=== PATIENT | male | born 1965 | race Caucasian/White ===

== ENCOUNTER 2018-09-18 15:41 | Inpatient (IN) | payer OTHER ==
[2018-09-18 16:55] VITALS: BMI 26.2
--- NOTE | 2018-09-18 18:53 | HP ---
COWS - Scale Resting Pulse: 0= [place] 80 or Below Sweatin= Chills/Flushing Restless Observation: 1= Difficult to Sit Still Pupil Size: 1= Pupils >than Normal Bone or Joint Aches: 1= Mild Discomfort Runny Nose/ Eye Tearin= Runny Nose/Eyes GI Upset > 30mins: 1= Stomach Cramp Tremor Observation: 1= Tremor [place], Not Seen Yawning Observation: 1= 1-2x During Session Anxiety or Irritability: 1=Feels Anxious/Irritable Goose Flesh Skin: 3=Piloerection COWS Score: 13 CIWA Score - Admission Criteria [facility] Guidelines: Admission for Medically Managed Detox: Requires at least one of the followin. CIWA greater than 12 2. Seizures within the past 24 hours 3. Delirium tremens within the past 24 hours 4. Hallucinations within the past 24 hours 5. Acute intervention needed for co occurring medical disorder 6. Acute intervention needed for co occurring psychiatric disorder 7. Severe withdrawal that cannot be handled at a lower level of care (continued vomiting, continued diarrhea, abnormal vital signs) requiring intravenous medication and/or fluids 8. Admission ROS [facility] Chief Complaint: WITHDRAWAL SYMPTOMS Allergies/Adverse Reactions: Allergies Allergy/AdvReac Type Severity Reaction Status Date / Time No Known Allergies Allergy Verified 09/18/18 18:18 History of Present Illness: 52 Y.O. MAN WITH AN EXTENSIVE HISTORY OF HEROIN, CRACK-COCAINE AND MARIJUANA DEPENDENCE IS HERE SEEKING DETOX SERVICES. LONGEST PERIOD OF ILLICIT DRUG USE ABSTINENCE HAS BEEN 5 YEARS WHILE INCARCERATED. Exam Limitations: No Limitations - Ebola screening Have you traveled outside of the country in the last 21 days: No Have you had contact with anyone from an Ebola affected area: No Have you been sick,other than usual withdrawal symptoms: No - Review of Systems Constitutional: Diaphoresis, Night Sweats EENT: reports: Tearing, Nose Congestion Respiratory: reports: Cough, Wheezing Cardiac: reports: No Symptoms Reported GI: reports: Diarrhea, Nausea, Vomiting : reports: No Symptoms Reported Musculoskeletal: reports: No Symptoms Reported Integumentary: reports: No Symptoms Reported Neuro: reports: No Symptoms reported Endocrine: reports: No Symptoms Reported Hematology: reports: No Symptoms Reported Psychiatric: reports: Judgement Intact, Mood/Affect Appropiate, Orientated x3 Other Systems: Reviewed and Negative Patient History - Patient Medical History Hx Anemia: No Hx Asthma: No Hx Chronic Obstructive Pulmonary Disease (COPD): No Hx Cancer: No Hx Cardiac Disorders: No Hx Congestive Heart Failure: No Hx Hypertension: No Hx Hypercholesterolemia: No Hx Pacemaker: No HX Cerebrovascular Accident: No Hx Seizures: No Hx Dementia: No Hx Diabetes: No Hx Gastrointestinal Disorders: No Hx Liver Disease: No Hx Genitourinary Disorders: No Hx Sexually Transmitted Disorders: No Hx Renal Disease (ESRD): No Hx Thyroid Disease: No Hx Human Immunodeficiency Virus (HIV): No Hx Hepatitis C: No Hx Depression: No Hx Suicide Attempt: No Hx Bipolar Disorder: No Hx Schizophrenia: No - Patient Surgical History Past Surgical History: No Hx Neurologic Surgery: No Hx Cataract Extraction: No Hx Cardiac Surgery: No Hx Lung Surgery: No Hx Breast Surgery: No Hx Breast Biopsy: No Hx Abdominal Surgery: No Hx Appendectomy: No Hx Cholecystectomy: No Hx Genitourinary Surgery: No Hx Section: No Hx Orthopedic Surgery: No Anesthesia Reaction: No - PPD History Previous Implant?: Yes Documented Results: Negative w/proof Date: 12/22/14 Results: 0mm PPD to be Administered?: Yes - Reproductive History Patient is a Female of Child Bearing Age (11 -55 yrs old): No - Smoking Cessation Smoking history: Current every day smoker Aproximately how many cigarettes per day: 4 Hx Chewing Tobacco Use: No Initiated information on smoking cessation: Yes 'Breaking Loose' booklet given: 09/18/18 - Substance & Tx. History Hx Alcohol Use: No Hx Substance Use: Yes Substance Use Type: Cocaine, Heroin, Marijuana Hx Substance Use Treatment: Yes (DETOX:12/2014; REHAB: 07/2013) - Substances Abused Heroin Route: Inhalation Frequency: Daily Amount used: 10 bags Age of first use: 19 Date of Last Use: 09/18/18 Crack Route: Smoking Frequency: 1-3 times last 30 days Amount used: $100 worth Age of first use: 21 Date of Last Use: 09/18/18 Marijuana/Hashish Route: Smoking Frequency: 1-3 times last 30 days Amount used: 2 bags Age of first use: 19 Date of Last Use: 09/18/18 Family Disease History - Family Disease History Family Disease History: Heart Disease: Mother (DECREASED ), CA: Father (PROSTATE ; ), Respiratory: Father Admission Physical Exam BHS - Vital Signs Vital Signs: Vital Signs - 24 hr 09/18/18 16:54 Temperature 97.5 F L Pulse Rate 75 Respiratory 18 Rate Blood Pressure 115/75 - Physical General Appearance: Yes: Irritable, Anxious HEENTM: Yes: Hearing grossly Normal, Normocephalic, Normal Voice Respiratory: Yes: Chest Non-Tender, Lungs Clear Neck: Yes: No masses,lesions,Nodules, Trachea in good position Breast: Yes: Breast Exam Deferred Cardiology: Yes: Regular Rhythm, Regular Rate Abdominal: Yes: Normal Bowel Sounds, Non Tender Genitourinary: Yes: Other (NO COMPLAINTS REPORTED) Back: Yes: Normal Inspection Musculoskeletal: Yes: full range of Motion, Gait Steady, Pelvis Stable Extremities: Yes: Normal Capillary Refill, Normal Inspection, Normal Range of Motion, Non-Tender Neurological: Yes: Alert, Normal Mood/Affect, Normal Response Integumentary: Yes: Normal Color, Dry, Warm Lymphatic: Yes: Within Normal Limits - Diagnostic (1) Nicotine dependence Current Visit: Yes Status: Chronic (2) Opioid dependence with withdrawal Current Visit: Yes Status: Chronic (3) Marijuana dependence Current Visit: Yes Status: Chronic (4) Cocaine dependence Current Visit: Yes Status: Acute Cleared for Admission [facility] - Detox or Rehab [facility] Level of Care: Medically Managed Detox Regimen/Protocol: Methadone [facility] Breath Alcohol Content Breath Alcohol Content: 0 Urine Drug Screen - Results Drug Screen Negative: No Urine Drug Screen Results: THC-Marijuana, MARIA C-Cocaine, OPI-Opiates, MTD- Methadone
[2018-09-18] MEDS ORDERED: hydrOXYzine PAMOATE 50 MG CAPSULE (FP) PO PRN (19:06)
[2018-09-18] MEDS ORDERED: IBUPROFEN 400 MG TABLET (FP) PO PRN (19:06)
[2018-09-18] MEDS ORDERED: P-EPHED 60MG/TRIPROLIDI 2.5MG TABLET PO PRN (19:06)
[2018-09-18] MEDS ORDERED: ACETAMINOPHEN 325 MG TABLET (FP) PO PRN (19:06)
[2018-09-18] MEDS ORDERED: MAGNESIUM HYDROX 2400MG/30ML ORAL SUSPENSION 30 ML CUP PO PRN (19:06)
[2018-09-18] MEDS ORDERED: guaiFENesin/D-METHORPHAN HB 10 ML UNIT-DOSE CUPS PO PRN (19:06)
[2018-09-18] MEDS ORDERED: MAGNESIUM CITRATE 300 ML BOTTLE PO PRN (19:06)
[2018-09-18] MEDS ORDERED: MENTHOL/PHENOL 1 EACH UD MM PRN (19:06)
[2018-09-18] MEDS ORDERED: NICOTINE POLACRILEX 2 MG GUM BUC PRN (19:06)
[2018-09-18] MEDS ORDERED: METHADONE HCL 10 MG TABLET (FOR DETOX USE ONLY) PO ONE ×2 (19:06→23:00)
[2018-09-18] MEDS ORDERED: LOPERAMIDE HCL 2 MG CAPSULE PO PRN (19:06)
[2018-09-18] MEDS ORDERED: MAG HYDROX/AL HYDROX/SIMETH 30 ML UNIT-DOSE CUP PO PRN (19:06)
[2018-09-18] MEDS: diazePAM 5 MG TABLET PO PRN (19:56)
[2018-09-18] MEDS: THIAMINE HCL 100 MG TABLET (FP) PO SCH (22:02)
[2018-09-18] MEDS: MELATONIN 5 MG TABLETS PO PRN (22:02)
[2018-09-18 23:19] LABS: URINE APPEARANCE SLCLOUDY; URINE BILIRUBIN NEGATIVE (<2.0 mg/dL); URINE COLOR DKYELLOW; URINE GLUCOSE (UA) 2+ (NEGATIVE); URINE KETONE 1+ (NEGATIVE); URINE LEUK ESTERASE NEGATIVE (NEGATIVE); URINE NITRITE NEGATIVE (NEGATIVE); URINE PROTEIN NEGATIVE (NEGATIVE)
[2018-09-19] MEDS ORDERED: METHADONE HCL 10 MG TABLET (FOR DETOX USE ONLY) PO ONE (10:00)
[2018-09-19] MEDS: diazePAM 5 MG TABLET PO PRN (10:12)
[2018-09-19] MEDS: PRENATAL VITAMINS W/ FOLIC ACID TABLET (FP) PO SCH (10:12)
[2018-09-19] MEDS: NICOTINE 14 MG/24 HOURS TOPICAL PATCH TD SCH (10:13)
[2018-09-19 10:52] LABS: HEMATOCRIT 41.7 % (35.4-49); HEMOGLOBIN 13.8 GM/dL (11.7-16.9); MCH 30.6 pg (25.7-33.7); MCHC 33.1 g/dl (32.0-35.9); MEAN CELL VOLUME 92.5 fl (80-96); MEAN PLT VOLUME 10.1 fl (7.5-11.1); PLATELET COUNT 144 K/MM3 (134-434); RBC 4.51 M/mm3 (4.00-5.60); RDW 12.9 % (11.9-15.9); WHITE BLOOD COUNT 6.1 K/mm3 (4.0-10.0)
[2018-09-19 11:19] LABS: ALBUMIN 3.4 g/dl (3.4-5.0); ALK PHOS 52 U/L (45-117); ANION GAP 8 MMOL/L (8-16); BILIRUBIN,TOTAL 0.5 mg/dL (0.2-1); BLOOD UREA NITROGEN 16 mg/dL (7-18); CALCIUM 8.2 mg/dL (8.5-10.1); CHLORIDE 107 mmol/L (98-107); CO2 26 mmol/L (21-32); CREATININE 0.8 mg/dL (0.55-1.3); GLUCOSE,RANDOM 93 mg/dL (74-106); POTASSIUM 3.9 mmol/L (3.5-5.1); SGOT/AST 14 U/L (15-37); SGPT/ALT 18 U/L (13-61); SODIUM 141 mmol/L (136-145); TOT PROT 6.1 g/dl (6.4-8.2)
--- NOTE | 2018-09-19 11:57 | PN ---
BHS COWS - Scale Resting Pulse: 0= [place] 80 or Below Sweatin=Flushed/Facial Moisture Restless Observation: 3= Extraneous Movement Pupil Size: 0= Normal to Room Light Bone or Joint Aches: 2= Severe Diffuse Aches Runny Nose/ Eye Tearin= Runny Nose/Eyes GI Upset > 30mins: 3= Vomiting/Diarrhea Tremor Observation of Outstretched Hands: 2= Slight Tremor Visible Yawning Observation: 0= None Anxiety or Irritability: 2=Irritable/Anxious Goose Flesh Skin: 0=Smooth Skin COWS Score: 16 BHS Progress Note (SOAP) Subjective: Tremor, chills, sweating, interrupted sleep Objective: 09/19/18 11:54 Last Vital Signs Temp Pulse Resp BP Pulse Ox 98.1 F 69 20 103/65 09/19/18 09:53 09/19/18 09:53 09/19/18 09:53 09/19/18 09:53 Laboratory Tests 09/18/18 09/19/18 09/19/18 16:27 07:30 07:30 WBC 6.1 RBC 4.51 Hgb 13.8 Hct 41.7 MCV 92.5 MCH 30.6 MCHC 33.1 RDW 12.9 Plt Count 144 MPV 10.1 Sodium Potassium Chloride Carbon Dioxide Anion Gap BUN Creatinine Creat Clearance w eGFR Random Glucose Calcium Total Bilirubin AST ALT Alkaline Phosphatase Total Protein Albumin Urine Color Dkyellow Urine Appearance Slcloudy Urine pH 6.0 Ur Specific [place] 1.033 Urine Protein Negative Urine Glucose (UA) 2+ H Urine Ketones 1+ H Urine Blood Negative Urine Nitrite Negative Urine Bilirubin Negative Urine Urobilinogen 2.0 Ur Leukocyte Esterase Negative RPR Titer HIV 1&2 Antibody Screen Negative HIV P24 Antigen Negative 09/19/18 09/19/18 07:30 07:30 WBC RBC Hgb Hct MCV MCH MCHC RDW Plt Count MPV Sodium 141 Potassium 3.9 Chloride 107 Carbon Dioxide 26 Anion Gap 8 BUN 16 Creatinine 0.8 Creat Clearance w eGFR > 60 Random Glucose 93 Calcium 8.2 L Total Bilirubin 0.5 AST 14 L ALT 18 Alkaline Phosphatase 52 Total Protein 6.1 L Albumin 3.4 Urine Color Urine Appearance Urine pH Ur Specific [place] Urine Protein Urine Glucose (UA) Urine Ketones Urine Blood Urine Nitrite Urine Bilirubin Urine Urobilinogen Ur Leukocyte Esterase RPR Titer Nonreactive HIV 1&2 Antibody Screen HIV P24 Antigen Labs reviewed: abnormal UA Assessment: 09/19/18 11:56 Withdrawal symptoms UA abnormal Plan: Continue detox Abnormal UA: encouraged PO water intake, repeat UA
[2018-09-19] MEDS: THIAMINE HCL 100 MG TABLET (FP) PO SCH (22:27)
[2018-09-19] MEDS: MELATONIN 5 MG TABLETS PO PRN (22:27)
[2018-09-20] MEDS ORDERED: METHADONE HCL 5 MG TABLET (FOR DETOX USE ONLY) PO ONE (10:00)
[2018-09-20] MEDS: PRENATAL VITAMINS W/ FOLIC ACID TABLET (FP) PO SCH (10:17)
[2018-09-20] MEDS: NICOTINE 14 MG/24 HOURS TOPICAL PATCH TD SCH (10:18)
--- NOTE | 2018-09-20 11:48 | PN ---
BHS COWS - Scale Resting Pulse: 0= [place] 80 or Below Sweatin= Chills/Flushing Restless Observation: 3= Extraneous Movement Pupil Size: 0= Normal to Room Light Bone or Joint Aches: 2= Severe Diffuse Aches Runny Nose/ Eye Tearin= Runny Nose/Eyes GI Upset > 30mins: 1= Stomach Cramp Tremor Observation of Outstretched Hands: 2= Slight Tremor Visible Yawning Observation: 0= None Anxiety or Irritability: 2=Irritable/Anxious Goose Flesh Skin: 0=Smooth Skin COWS Score: 13 BHS Progress Note (SOAP) Subjective: Sweating, diarrhea, chills, interrupted sleep, agitation, anxious Objective: 09/20/18 11:46 Last Vital Signs Temp Pulse Resp BP Pulse Ox 98.5 F 63 18 111/67 09/20/18 09:33 09/20/18 09:33 09/20/18 09:33 09/20/18 09:33 Laboratory Tests 09/18/18 09/19/18 09/19/18 16:27 07:30 07:30 WBC 6.1 RBC 4.51 Hgb 13.8 Hct 41.7 MCV 92.5 MCH 30.6 MCHC 33.1 RDW 12.9 Plt Count 144 MPV 10.1 Sodium Potassium Chloride Carbon Dioxide Anion Gap BUN Creatinine Creat Clearance w eGFR Random Glucose Calcium Total Bilirubin AST ALT Alkaline Phosphatase Total Protein Albumin Urine Color Dkyellow Urine Appearance Slcloudy Urine pH 6.0 Ur Specific [place] 1.033 Urine Protein Negative Urine Glucose (UA) 2+ H Urine Ketones 1+ H Urine Blood Negative Urine Nitrite Negative Urine Bilirubin Negative Urine Urobilinogen 2.0 Ur Leukocyte Esterase Negative RPR Titer HIV 1&2 Antibody Screen Negative HIV P24 Antigen Negative 09/19/18 09/19/18 07:30 07:30 WBC RBC Hgb Hct MCV MCH MCHC RDW Plt Count MPV Sodium 141 Potassium 3.9 Chloride 107 Carbon Dioxide 26 Anion Gap 8 BUN 16 Creatinine 0.8 Creat Clearance w eGFR > 60 Random Glucose 93 Calcium 8.2 L Total Bilirubin 0.5 AST 14 L ALT 18 Alkaline Phosphatase 52 Total Protein 6.1 L Albumin 3.4 Urine Color Urine Appearance Urine pH Ur Specific [place] Urine Protein Urine Glucose (UA) Urine Ketones Urine Blood Urine Nitrite Urine Bilirubin Urine Urobilinogen Ur Leukocyte Esterase RPR Titer Nonreactive HIV 1&2 Antibody Screen HIV P24 Antigen Labs reviewed: abnormal UA Assessment: 09/20/18 11:47 Withdrawal symptoms Plan: Continue detox Encouraged PO water intake Follow up on repeated UA (result pending)
[2018-09-20 16:47] LABS: URINE APPEARANCE CLEAR; URINE BILIRUBIN NEGATIVE (<2.0 mg/dL); URINE COLOR LTYELLOW; URINE GLUCOSE (UA) NEGATIVE (NEGATIVE); URINE KETONE NEGATIVE (NEGATIVE); URINE LEUK ESTERASE NEGATIVE (NEGATIVE); URINE NITRITE NEGATIVE (NEGATIVE); URINE PROTEIN NEGATIVE (NEGATIVE); URINE UROBILINOGEN NEGATIVE mg/dL (0.2-1.0)
[2018-09-20] MEDS: MELATONIN 5 MG TABLETS PO PRN (22:39)
[2018-09-20] MEDS: THIAMINE HCL 100 MG TABLET (FP) PO SCH (22:40)
[2018-09-20] MEDS: diazePAM 5 MG TABLET PO PRN (22:40)
[2018-09-21] MEDS ORDERED: METHADONE HCL 5 MG TABLET (FOR DETOX USE ONLY) PO ONE (10:00)
[2018-09-21] MEDS: PRENATAL VITAMINS W/ FOLIC ACID TABLET (FP) PO SCH (10:16)
[2018-09-21] MEDS: NICOTINE 14 MG/24 HOURS TOPICAL PATCH TD SCH (10:16)
--- NOTE | 2018-09-21 14:57 | PN ---
BHS Progress Note (SOAP) Subjective: Agitated, restless, anxious, sweating, interrupted sleep, runny nose Objective: 09/21/18 14:56 Last Vital Signs Temp Pulse Resp BP Pulse Ox 97.1 F L 67 20 114/74 09/21/18 14:19 09/21/18 14:19 09/21/18 14:19 09/21/18 14:19 Laboratory Tests 09/18/18 09/19/18 09/19/18 16:27 07:30 07:30 WBC 6.1 RBC 4.51 Hgb 13.8 Hct 41.7 MCV 92.5 MCH 30.6 MCHC 33.1 RDW 12.9 Plt Count 144 MPV 10.1 Sodium Potassium Chloride Carbon Dioxide Anion Gap BUN Creatinine Creat Clearance w eGFR Random Glucose Calcium Total Bilirubin AST ALT Alkaline Phosphatase Total Protein Albumin Urine Color Dkyellow Urine Appearance Slcloudy Urine pH 6.0 Ur Specific [place] 1.033 Urine Protein Negative Urine Glucose (UA) 2+ H Urine Ketones 1+ H Urine Blood Negative Urine Nitrite Negative Urine Bilirubin Negative Urine Urobilinogen 2.0 Ur Leukocyte Esterase Negative RPR Titer HIV 1&2 Antibody Screen Negative HIV P24 Antigen Negative 09/19/18 09/19/18 09/20/18 07:30 07:30 11:00 WBC RBC Hgb Hct MCV MCH MCHC RDW Plt Count MPV Sodium 141 Potassium 3.9 Chloride 107 Carbon Dioxide 26 Anion Gap 8 BUN 16 Creatinine 0.8 Creat Clearance w eGFR > 60 Random Glucose 93 Calcium 8.2 L Total Bilirubin 0.5 AST 14 L ALT 18 Alkaline Phosphatase 52 Total Protein 6.1 L Albumin 3.4 Urine Color Ltyellow Urine Appearance Clear Urine pH 7.0 Ur Specific [place] 1.013 Urine Protein Negative Urine Glucose (UA) Negative Urine Ketones Negative Urine Blood Negative Urine Nitrite Negative Urine Bilirubin Negative Urine Urobilinogen Negative Ur Leukocyte Esterase Negative RPR Titer Nonreactive HIV 1&2 Antibody Screen HIV P24 Antigen Labs reviewed Assessment: 09/21/18 14:57 Withdrawal symptoms Plan: Continue detox Encouraged PO water intake
[2018-09-21] MEDS: diazePAM 5 MG TABLET PO PRN (17:39)
[2018-09-21] MEDS: THIAMINE HCL 100 MG TABLET (FP) PO SCH (22:28)
[2018-09-22] MEDS ORDERED: METHADONE HCL 10 MG TABLET (FOR DETOX USE ONLY) PO ONE (10:00)
[2018-09-22] MEDS: NICOTINE 14 MG/24 HOURS TOPICAL PATCH TD SCH (10:05)
[2018-09-22] MEDS: PRENATAL VITAMINS W/ FOLIC ACID TABLET (FP) PO SCH (10:05)
--- NOTE | 2018-09-22 13:43 | PN ---
BHS Progress Note (SOAP) Subjective: PT REPORTS, FEELING LESS DISCOMFORT. ALERT O X 3. Objective: 09/22/18 13:42 Vital Signs 09/22/18 09/22/18 06:35 10:18 Temperature 97.2 F L 97.3 F L Pulse Rate 68 68 Respiratory 18 18 Rate Blood Pressure 92/58 L 115/85 Laboratory Tests 09/18/18 09/19/18 09/19/18 16:27 07:30 07:30 WBC 6.1 RBC 4.51 Hgb 13.8 Hct 41.7 MCV 92.5 MCH 30.6 MCHC 33.1 RDW 12.9 Plt Count 144 MPV 10.1 Sodium Potassium Chloride Carbon Dioxide Anion Gap BUN Creatinine Creat Clearance w eGFR Random Glucose Calcium Total Bilirubin AST ALT Alkaline Phosphatase Total Protein Albumin Urine Color Dkyellow Urine Appearance Slcloudy Urine pH 6.0 Ur Specific [place] 1.033 Urine Protein Negative Urine Glucose (UA) 2+ H Urine Ketones 1+ H Urine Blood Negative Urine Nitrite Negative Urine Bilirubin Negative Urine Urobilinogen 2.0 Ur Leukocyte Esterase Negative RPR Titer HIV 1&2 Antibody Screen Negative HIV P24 Antigen Negative 09/19/18 09/19/18 09/20/18 07:30 07:30 11:00 WBC RBC Hgb Hct MCV MCH MCHC RDW Plt Count MPV Sodium 141 Potassium 3.9 Chloride 107 Carbon Dioxide 26 Anion Gap 8 BUN 16 Creatinine 0.8 Creat Clearance w eGFR > 60 Random Glucose 93 Calcium 8.2 L Total Bilirubin 0.5 AST 14 L ALT 18 Alkaline Phosphatase 52 Total Protein 6.1 L Albumin 3.4 Urine Color Ltyellow Urine Appearance Clear Urine pH 7.0 Ur Specific [place] 1.013 Urine Protein Negative Urine Glucose (UA) Negative Urine Ketones Negative Urine Blood Negative Urine Nitrite Negative Urine Bilirubin Negative Urine Urobilinogen Negative Ur Leukocyte Esterase Negative RPR Titer Nonreactive HIV 1&2 Antibody Screen HIV P24 Antigen Assessment: 09/22/18 13:43 WITHDRAWAL SX Plan: CONTINUE DETOX
[2018-09-22 22:21] VITALS: TEMP 97
[2018-09-22] MEDS: THIAMINE HCL 100 MG TABLET (FP) PO SCH (22:21)
[2018-09-23] MEDS ORDERED: METHADONE HCL 5 MG TABLET (FOR DETOX USE ONLY) PO ONE (06:00)
[2018-09-23 06:27] VITALS: BP 113/68; PULSE 62
--- NOTE | 2018-09-23 11:32 | DS ---
[facility] Detox Discharge Summary Admission Date: 09/18/18 Discharge Date: 09/23/18 - History Present History: Cannabis Dependence, Cocaine Dependence, Opioid Dependence Additional Comments: Patient completed detox successfully. Patient is A, A, Ox3, in nad, ambulatory. He is stable for discharge today. Patient instructed to follow up with his PCP within 1-2 weeks. Pertinent Past History: Cocaine dependence Cannabis dependence Opioid dependence Nicotine dependence - Physical Exam Results Vital Signs: Vital Signs Temperature 97.0 F L 09/23/18 06:26 Pulse Rate 62 09/23/18 06:26 Respiratory Rate 18 09/23/18 06:26 Blood Pressure 113/68 09/23/18 06:26 O2 Sat by Pulse Oximetry (%) Pertinent Admission Physical Exam Findings: Withdrawal symptoms Laboratory Tests 09/18/18 09/19/18 09/19/18 16:27 07:30 07:30 WBC 6.1 RBC 4.51 Hgb 13.8 Hct 41.7 MCV 92.5 MCH 30.6 MCHC 33.1 RDW 12.9 Plt Count 144 MPV 10.1 Sodium Potassium Chloride Carbon Dioxide Anion Gap BUN Creatinine Creat Clearance w eGFR Random Glucose Calcium Total Bilirubin AST ALT Alkaline Phosphatase Total Protein Albumin Urine Color Dkyellow Urine Appearance Slcloudy Urine pH 6.0 Ur Specific [place] 1.033 Urine Protein Negative Urine Glucose (UA) 2+ H Urine Ketones 1+ H Urine Blood Negative Urine Nitrite Negative Urine Bilirubin Negative Urine Urobilinogen 2.0 Ur Leukocyte Esterase Negative RPR Titer HIV 1&2 Antibody Screen Negative HIV P24 Antigen Negative 09/19/18 09/19/18 09/20/18 07:30 07:30 11:00 WBC RBC Hgb Hct MCV MCH MCHC RDW Plt Count MPV Sodium 141 Potassium 3.9 Chloride 107 Carbon Dioxide 26 Anion Gap 8 BUN 16 Creatinine 0.8 Creat Clearance w eGFR > 60 Random Glucose 93 Calcium 8.2 L Total Bilirubin 0.5 AST 14 L ALT 18 Alkaline Phosphatase 52 Total Protein 6.1 L Albumin 3.4 Urine Color Ltyellow Urine Appearance Clear Urine pH 7.0 Ur Specific [place] 1.013 Urine Protein Negative Urine Glucose (UA) Negative Urine Ketones Negative Urine Blood Negative Urine Nitrite Negative Urine Bilirubin Negative Urine Urobilinogen Negative Ur Leukocyte Esterase Negative RPR Titer Nonreactive HIV 1&2 Antibody Screen HIV P24 Antigen Labs reviewed - Treatment Hospital Course: Detox Protocol Followed, Detoxed Safely, Responded well, Discharged Condition Good - Medication Discharge Medications: Ambulatory Orders NK [No Known Home Medication] 09/18/18 - Diagnosis (1) Cocaine dependence Status: Chronic (2) Marijuana dependence Status: Chronic (3) Nicotine dependence Status: Chronic Qualifiers: Nicotine product type: cigarettes Substance use status: in withdrawal Qualified Code(s): F17.213 - Nicotine dependence, cigarettes, with withdrawal (4) Opioid dependence with withdrawal Status: Acute - AMA Did Patient Leave Against Medical Advice: No (F/U with PCP within 1-2 weeks)
== END 2018-09-23 08:42 | disposition home or self-care (01) | DRG 773 ==
LOC: YASAS 15:41 → Y3N 18:49
PROC: HZ2ZZZZ Detoxification Services for Substance Abuse Treatment (ICD-10-PCS; principal; 2018-09-18)
DX: F11.23 Opioid dependence with withdrawal (principal); F14.20 Cocaine dependence, uncomplicated; F12.20 Cannabis dependence, uncomplicated; F17.213 Nicotine dependence, cigarettes, with withdrawal
CPT/HCPCS: 36415; 80053; 81003; 85027; 86593; 87389

== ENCOUNTER 2019-05-13 17:36 | Inpatient (IN) | payer OTHER ==
[2019-05-13 19:38] VITALS: BMI 24.5
--- NOTE | 2019-05-13 21:16 | HP ---
"COWS - Scale Resting Pulse: 0= OK 80 or Below Sweatin=Flushed/Facial Moisture Restless Observation: 3= Extraneous Movement Pupil Size: 2= Moderately Dilated (Pupils = 4 mm) Bone or Joint Aches: 0= None Runny Nose/ Eye Tearin= Nasal Congestion GI Upset > 30mins: 2= Nausea/Diarrhea Tremor Observation: 2= Slight Tremor Visible Yawning Observation: 0= None Anxiety or Irritability: 1=Feels Anxious/Irritable Goose Flesh Skin: 0=Smooth Skin COWS Score: 13 CIWA Score - Admission Criteria [facility]ASAS Guidelines: Admission for Medically Managed Detox: Requires at least one of the followin. CIWA greater than 12 2. Seizures within the past 24 hours 3. Delirium tremens within the past 24 hours 4. Hallucinations within the past 24 hours 5. Acute intervention needed for co occurring medical disorder 6. Acute intervention needed for co occurring psychiatric disorder 7. Severe withdrawal that cannot be handled at a lower level of care (continued vomiting, continued diarrhea, abnormal vital signs) requiring intravenous medication and/or fluids 8. Admission [facility] Chief Complaint: Heroin withdrawal Allergies/Adverse Reactions: Allergies Allergy/AdvReac Type Severity Reaction Status Date / Time No Known Allergies Allergy Verified 05/13/19 19:30 History of Present Illness: 53 yo presents with opioid withdrawal and requesting detox. Heroin/opiate use began at age 20. Stopped [facility] program 1 week ago and has been using approx 15 bags./daily nasally. States was receiving 80 mg methadone daily and last medicated 1 week ago. Cocaine/Crack use began at age [age]. Nicotine use began at age 12. Denies BZO use. Denies hx overdose, seizures, blackouts. PMHx: Denies significant PMH MHHx: Denies depression. Denies thoughts of harming self or others. Patient Name: Kadeem Lord Date: 1965 Address: [address] [place] [address] Sex: Male Rx Written Rx Dispensed Drug Quantity Days Supply Prescriber Name 12/20/2018 12/21/2018 buprenorphine-naloxone 8-2 mg sl film 14 7 Rashawn Adan 11/23/2018 11/23/2018 suboxone 8 mg-2 mg sl film 60 30 Rashawn Adan 11/12/2018 11/13/2018 suboxone 8 mg-2 mg sl film 14 7 Rashawn Adan 11/01/2018 11/02/2018 suboxone 8 mg-2 mg sl film 14 7 Rashawn Adan 07/13/2018 07/18/2018 suboxone 8 mg-2 mg sl film 60 30 Rashawn Adan 07/04/2018 07/06/2018 suboxone 8 mg-2 mg sl film 14 7 Rashawn Adan 07/04/2018 07/04/2018 suboxone 4 mg-1 mg sl film 6 3 Rashawn Adan Search Terms: Kadeem Lord, 1965 Search Date: 05/13/2019 09:15:53 PM States Searched: [place], [place], [place], [place], [place], [place], [place], [place] The Drug Utilization Report below displays the controlled substance prescriptions, if any, that were dispensed in the indicated state(s). The information displayed on this report is compiled from requests submitted to other states' PMPs, and accurately reflects the information as returned by them. Blank garsia indicate data not provided by other state. This report was requested by: Ashwini Ibrahim | Reference #: [id number] Exam Limitations: No Limitations - Ebola screening Have you traveled outside of the country in the last 21 days: No (N) Have you had contact with anyone from an Ebola affected area: No Have you been sick,other than usual withdrawal symptoms: No (Denies recent exposure to measles. ) Do you have a fever: No - Review of Systems Constitutional: Chills, Diaphoresis EENT: reports: No Symptoms Reported Respiratory: reports: No Symptoms reported Cardiac: reports: No Symptoms Reported GI: reports: Diarrhea (Watery, yeloow/brown), Nausea : reports: No Symptoms Reported Musculoskeletal: reports: No Symptoms Reported Integumentary: reports: No Symptoms Reported Neuro: reports: Tremors (Mild shakes) Endocrine: reports: No Symptoms Reported Hematology: reports: No Symptoms Reported Psychiatric: reports: Judgement Intact, Orientated x3 (Missed date by 1 day), Anxious Patient History - Patient Medical History Hx Anemia: No Hx Asthma: No Hx Chronic Obstructive Pulmonary Disease (COPD): No Hx Cancer: No Hx Cardiac Disorders: No Hx Congestive Heart Failure: No Hx Hypertension: No Hx Hypercholesterolemia: No Hx Pacemaker: No HX Cerebrovascular Accident: No Hx Seizures: No Hx Dementia: No Hx Diabetes: No Hx Gastrointestinal Disorders: No Hx Liver Disease: No Hx Genitourinary Disorders: No Hx Sexually Transmitted Disorders: No Hx Renal Disease (ESRD): No Hx Thyroid Disease: No Hx Human Immunodeficiency Virus (HIV): No Hx Hepatitis C: No Hx Depression: No Hx Suicide Attempt: No Hx Bipolar Disorder: No Hx Schizophrenia: No - Patient Surgical History Past Surgical History: No Hx Neurologic Surgery: No Hx Cataract Extraction: No Hx Cardiac Surgery: No Hx Lung Surgery: No Hx Breast Surgery: No Hx Breast Biopsy: No Hx Abdominal Surgery: No Hx Appendectomy: No Hx Cholecystectomy: No Hx Genitourinary Surgery: No Hx Section: No Hx Orthopedic Surgery: No Anesthesia Reaction: No - PPD History Previous Implant?: Yes Documented Results: Negative w/proof Implanted On Prior [facility] Admission?: Yes Date: 09/20/18 Results: 0mm PPD to be Administered?: No - Smoking Cessation Smoking history: Current every day smoker Have you smoked in the past 12 months: Yes Aproximately how many cigarettes per day: 2 Hx Chewing Tobacco Use: No Initiated information on smoking cessation: Yes 'Breaking Loose' booklet given: 05/13/19 - Substance & Tx. History Hx Alcohol Use: No Hx Substance Use: No Substance Use Type: Cocaine, Heroin Hx Substance Use Treatment: Yes (detox, rehab, Just left [facility] 1 week ago) - Substances abused Heroin Substance route: Inhalation Frequency: Daily Amount used: 15 bags/day Age of first use: 20 Date of last use: 05/13/19 Crack Substance route: Smoking Frequency: 1-3 times last 30 days Amount used: $350 Age of first use: 21 Date of last use: 05/11/19 Family Disease History - Family Disease History Family Disease History: Heart Disease: Mother (DECREASED ), CA: Father (PROSTATE ; ), Respiratory: Father Admission Physical Exam BHS - Vital Signs Vital Signs: Vital Signs - 24 hr 05/13/19 19:31 Temperature 98.2 F Pulse Rate 72 Respiratory 18 Rate Blood Pressure 116/75 - Physical General Appearance: Yes: Mild Distress, Tremorous, Sweating (Increased facial moisture), Anxious HEENTM: Yes: EOMI, Hearing grossly Normal, Normocephalic, Normal Voice, OLGA LIDIA ( Pupils = 4 mm), Pharynx Normal, Nasal Congestion Respiratory: Yes: Lungs Clear, Normal Breath Sounds, No Respiratory Distress Neck: Yes: No masses,lesions,Nodules, Supple Breast: Yes: Breast Exam Deferred Cardiology: Yes: Regular Rhythm, Regular Rate (HR: 68), S1, S2 Abdominal: Yes: Non Tender, Flat, Soft, Increased Bowel Sounds Genitourinary: Yes: Within Normal Limits Back: Yes: Normal Inspection Musculoskeletal: Yes: full range of Motion, Gait Steady Extremities: Yes: Normal Capillary Refill, Normal Inspection, Normal Range of Motion, Tremors Neurological: 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, Alert, Motor Strength 5/5, Normal Response Integumentary: Yes: Normal Color, Warm, Diaphoresis (Increased facial moisture) Lymphatic: Yes: Within Normal Limits - Diagnostic (1) Opioid dependence with withdrawal Current Visit: Yes Status: Acute (2) Cocaine dependence Current Visit: Yes Status: Chronic (3) Nicotine dependence Current Visit: Yes Status: Chronic Qualifiers: Nicotine product type: cigarettes Substance use status: in withdrawal Qualified Code(s): F17.213 - Nicotine dependence, cigarettes, with withdrawal Cleared for Admission [facility] - Detox or Rehab [facility] Level of Care: Medically Managed Detox Regimen/Protocol: Methadone Claeared for Rehab Admission: No Breathalyzer - Breathalyzer Breathalyzer: 0 Urine Drug Screen - Test Device Lot number: [id number] Expiration date: 09/21/20 - Control Is test valid?: Yes - Results Drug screen NEGATIVE: No Urine drug screen results: MARIA C-Cocaine, MET-Methamphetamine, FEN-Fentanyl, MOP- Opiates, OXY-Oxycodone, BZO-Benzodiazepines Inpatient Rehab Admission - Rehab Decision to Admit Inpatient rehab admission?: No"
[2019-05-13] MEDS ORDERED: cloNIDine HCL 0.1 MG TABLET PO PRN (22:07)
[2019-05-13] MEDS ORDERED: MAGNESIUM HYDROX 2400MG/30ML ORAL SUSPENSION 30 ML CUP PO PRN (22:07)
[2019-05-13] MEDS ORDERED: MELATONIN 5 MG TABLETS PO PRN (22:07)
[2019-05-13] MEDS ORDERED: METHOCARBAMOL 500 MG TABLET PO PRN (22:07)
[2019-05-13] MEDS ORDERED: IBUPROFEN 400 MG TABLET (FP) PO PRN (22:07)
[2019-05-13] MEDS ORDERED: METHADONE HCL 10 MG TABLET (FOR DETOX USE ONLY) PO ONE (22:07)
[2019-05-13] MEDS ORDERED: NICOTINE POLACRILEX 2 MG GUM BUC PRN (22:07)
[2019-05-13] MEDS ORDERED: BISMUTH SUBSALICYLATE 524 MG/30 ML UD PO PRN (22:07)
[2019-05-13] MEDS ORDERED: MAG HYDROX/AL HYDROX/SIMETH 30 ML UNIT-DOSE CUP PO PRN (22:07)
[2019-05-13] MEDS ORDERED: MENTHOL/PHENOL 1 EACH UD MM PRN (22:07)
[2019-05-13] MEDS ORDERED: MAGNESIUM CITRATE 300 ML BOTTLE PO PRN (22:07)
[2019-05-13] MEDS ORDERED: ACETAMINOPHEN 325 MG TABLET (FP) PO PRN ×2 (22:07)
[2019-05-14] MEDS ORDERED: METHADONE HCL 5 MG TABLET (FOR DETOX USE ONLY) ONE (09:23)
[2019-05-14] MEDS ORDERED: METHADONE HCL 10 MG TABLET (FOR DETOX USE ONLY) ONE (09:23)
[2019-05-14] MEDS ORDERED: METHADONE (DETOX) 20 MG, METHADONE (DETOX) 5 MG PO ONE (10:00)
--- NOTE | 2019-05-14 10:25 | PN ---
BHS COWS - Scale Resting Pulse: 0= RI 80 or Below Sweatin= Chills/Flushing Restless Observation: 0= Sits Still Pupil Size: 1= Pupils >than Normal Bone or Joint Aches: 1= Mild Discomfort Runny Nose/ Eye Tearin= Nasal Congestion GI Upset > 30mins: 1= Stomach Cramp Tremor Observation of Outstretched Hands: 2= Slight Tremor Visible Yawning Observation: 1= 1-2x During Session Anxiety or Irritability: 2=Irritable/Anxious Goose Flesh Skin: 0=Smooth Skin COWS Score: 10 BHS Progress Note (SOAP) Subjective: patient requests his breakfast to be warm up encourage the patient follow up unit schedule toward opiate recovery patient reported that he stop using opiate two days prior to detox admission that "I can do this" "I did this before" patient stated that he received methadone upon arrival to the detox unit and feeling ok that withdrawal can be self managed explained to the patient that skip one dose of detox regimen is acceptable Objective: 05/14/19 11:39 Vital Signs Temperature 96.8 F L 05/14/19 09:27 Pulse Rate 61 05/14/19 09:27 Respiratory Rate 16 05/14/19 09:27 Blood Pressure 100/65 05/14/19 09:27 O2 Sat by Pulse Oximetry (%) 05/14/19 11:39 lab pending Assessment: 05/14/19 11:39 opiate withdrawal sx Plan: continue opiate detox
[2019-05-14] MEDS: PRENATAL VITAMINS W/ FOLIC ACID TABLET (FP) PO SCH (11:39)
[2019-05-14] MEDS ORDERED: ONDANSETRON *ODT* 4 MG TABLET SL ONE (11:40)
[2019-05-14 12:10] LABS: ALBUMIN 3.3 g/dl (3.4-5.0); BILIRUBIN,TOTAL 0.3 mg/dL (0.2-1); BLOOD UREA NITROGEN 17.5 mg/dL (7-18); CALCIUM 8.6 mg/dL (8.5-10.1); CREATININE 0.9 mg/dL (0.55-1.3); POTASSIUM 3.9 mmol/L (3.5-5.1); TOT PROT 5.9 g/dl (6.4-8.2)
[2019-05-14 12:21] LABS: HEMATOCRIT 38.9 % (35.4-49); HEMOGLOBIN 13.3 GM/dL (11.7-16.9); MCH 31.8 pg (25.7-33.7); MCHC 34.1 g/dl (32.0-35.9); MEAN CELL VOLUME 93.1 fl (80-96); MEAN PLT VOLUME 9.9 fl (7.5-11.1); PLATELET COUNT 155 K/MM3 (134-434); RBC 4.18 M/mm3 (4.00-5.60); RDW 13.3 % (11.9-15.9); WHITE BLOOD COUNT 6.4 K/mm3 (4.0-10.0)
--- NOTE | 2019-05-14 13:43 | EKG ---
Test Reason : Blood Pressure : / mmHG Vent. Rate : 059 BPM Atrial Rate : 059 BPM P-R Int : 118 ms QRS Dur : 092 ms QT Int : 440 ms P-R-T Axes : 007 009 020 degrees QTc Int : 435 ms SINUS BRADYCARDIA OTHERWISE NORMAL ECG NO PREVIOUS ECGS AVAILABLE Confirmed by Edmundo Vidal MD ([id number]) on 05/14/2019 1:42:33 PM Referred By: Confirmed By:Edmundo Vidal MD
[2019-05-14 14:47] LABS: PH,URINE 6.5 (5.0-8.0); URINE APPEARANCE CLEAR; URINE BILIRUBIN NEGATIVE (NEGATIVE); URINE COLOR YELLOW; URINE GLUCOSE (UA) NEGATIVE (NEGATIVE); URINE KETONE NEGATIVE (NEGATIVE); URINE LEUK ESTERASE NEGATIVE (NEGATIVE); URINE NITRITE NEGATIVE (NEGATIVE); URINE PROTEIN NEGATIVE (NEGATIVE)
[2019-05-14] MEDS: THIAMINE HCL 100 MG TABLET (FP) PO SCH (22:14)
[2019-05-15] MEDS ORDERED: METHADONE HCL 10 MG TABLET (FOR DETOX USE ONLY) PO ONE ×2 (10:00→14:45)
[2019-05-15] MEDS: PRENATAL VITAMINS W/ FOLIC ACID TABLET (FP) PO SCH (10:15)
--- NOTE | 2019-05-15 13:22 | PN ---
BHS COWS - Scale Resting Pulse: 0= DC 80 or Below Sweatin= Chills/Flushing Restless Observation: 0= Sits Still Pupil Size: 1= Pupils >than Normal Bone or Joint Aches: 1= Mild Discomfort Runny Nose/ Eye Tearin= Nasal Congestion GI Upset > 30mins: 1= Stomach Cramp Tremor Observation of Outstretched Hands: 1= Tremor [place], Not Seen Yawning Observation: 1= 1-2x During Session Anxiety or Irritability: 2=Irritable/Anxious Goose Flesh Skin: 0=Smooth Skin COWS Score: 9 BHS Progress Note (SOAP) Subjective: patient try to manage opiate withdrawal sx but today but body aches and anxiety encourage to take methadone 10 mg now and possible tomorrow 5 mg patient prefers return to [facility] for [facility]iate misuse Objective: 05/15/19 14:27 Vital Signs Temperature 98.9 F 05/15/19 13:32 Pulse Rate 68 05/15/19 13:32 Respiratory Rate 18 05/15/19 13:32 Blood Pressure 105/79 05/15/19 13:32 O2 Sat by Pulse Oximetry (%) Laboratory Last Values WBC 6.4 K/mm3 (4.0-10.0) 05/14/19 07:00 RBC 4.18 M/mm3 (4.00-5.60) 05/14/19 07:00 Hgb 13.3 GM/dL (11.7-16.9) 05/14/19 07:00 Hct 38.9 % (35.4-49) 05/14/19 07:00 MCV 93.1 fl (80-96) 05/14/19 07:00 MCH 31.8 pg (25.7-33.7) 05/14/19 07:00 MCHC 34.1 g/dl (32.0-35.9) 05/14/19 07:00 RDW 13.3 % (11.9-15.9) 05/14/19 07:00 Plt Count 155 K/MM3 (134-434) 05/14/19 07:00 MPV 9.9 fl (7.5-11.1) 05/14/19 07:00 Sodium 142 mmol/L (136-145) 05/14/19 07:00 Potassium 3.9 mmol/L (3.5-5.1) 05/14/19 07:00 Chloride 106 mmol/L (98-107) 05/14/19 07:00 Carbon Dioxide 31 mmol/L (21-32) 05/14/19 07:00 Anion Gap 5 MMOL/L (8-16) L 05/14/19 07:00 BUN 17.5 mg/dL (7-18) 05/14/19 07:00 Creatinine 0.9 mg/dL (0.55-1.3) 05/14/19 07:00 Est GFR (CKD-EPI)AfAm 113.41 05/14/19 07:00 Est GFR (CKD-EPI)NonAf 97.85 05/14/19 07:00 Random Glucose 93 mg/dL (74-106) 05/14/19 07:00 Calcium 8.6 mg/dL (8.5-10.1) 05/14/19 07:00 Total Bilirubin 0.3 mg/dL (0.2-1) 05/14/19 07:00 AST 31 U/L (15-37) 05/14/19 07:00 ALT 21 U/L (13-61) 05/14/19 07:00 Alkaline Phosphatase 59 U/L (45-117) 05/14/19 07:00 Total Protein 5.9 g/dl (6.4-8.2) L 05/14/19 07:00 Albumin 3.3 g/dl (3.4-5.0) L 05/14/19 07:00 Urine Color Yellow 05/14/19 12:00 Urine Appearance Clear 05/14/19 12:00 Urine pH 6.5 (5.0-8.0) 05/14/19 12:00 Ur Specific [place] 1.028 (1.010-1.035) 05/14/19 12:00 Urine Protein Negative (NEGATIVE) 05/14/19 12:00 Urine Glucose (UA) Negative (NEGATIVE) 05/14/19 12:00 Urine Ketones Negative (NEGATIVE) 05/14/19 12:00 Urine Blood Negative (NEGATIVE) 05/14/19 12:00 Urine Nitrite Negative (NEGATIVE) 05/14/19 12:00 Urine Bilirubin Negative (NEGATIVE) 05/14/19 12:00 Urine Urobilinogen 1.0 mg/dL (0.2-1.0) 05/14/19 12:00 Ur Leukocyte Esterase Negative (NEGATIVE) 05/14/19 12:00 RPR Titer Nonreactive (NONREACTIVE) 05/14/19 07:00 lab noted Assessment: 05/15/19 14:27 opiate withdrawal sx Plan: continue opiate detox
[2019-05-15 21:14] VITALS: TEMP 97.2
[2019-05-15] MEDS: THIAMINE HCL 100 MG TABLET (FP) PO SCH (22:15)
[2019-05-16] MEDS ORDERED: METHADONE HCL 5 MG TABLET (FOR DETOX USE ONLY) PO ONE ×2 (06:00→08:21)
[2019-05-16 06:17] VITALS: BP 99/65; PULSE 63
--- NOTE | 2019-05-16 08:27 | DS ---
[facility] Detox Discharge Summary Admission Date: 05/13/19 Discharge Date: 05/16/19 - History Present History: Opioid Dependence Additional Comments: 53 years old male admitted on 05/13/19 for opiate withdrawal sx reject methadone multiple times prefers to take one 10 mg of methadone 05/15/19 and 5 mg of methadone on patient wants to go to medication assisted treatment program [facility] requests methadone 5 mg upon discharge today - Physical Exam Results Vital Signs: Vital Signs Temperature 97.2 F L 05/16/19 06:16 Pulse Rate 63 05/16/19 06:16 Respiratory Rate 18 05/16/19 06:16 Blood Pressure 99/65 05/16/19 06:16 O2 Sat by Pulse Oximetry (%) Pertinent Admission Physical Exam Findings: opiate withdrawal sx Laboratory Last Values WBC 6.4 K/mm3 (4.0-10.0) 05/14/19 07:00 RBC 4.18 M/mm3 (4.00-5.60) 05/14/19 07:00 Hgb 13.3 GM/dL (11.7-16.9) 05/14/19 07:00 Hct 38.9 % (35.4-49) 05/14/19 07:00 MCV 93.1 fl (80-96) 05/14/19 07:00 MCH 31.8 pg (25.7-33.7) 05/14/19 07:00 MCHC 34.1 g/dl (32.0-35.9) 05/14/19 07:00 RDW 13.3 % (11.9-15.9) 05/14/19 07:00 Plt Count 155 K/MM3 (134-434) 05/14/19 07:00 MPV 9.9 fl (7.5-11.1) 05/14/19 07:00 Sodium 142 mmol/L (136-145) 05/14/19 07:00 Potassium 3.9 mmol/L (3.5-5.1) 05/14/19 07:00 Chloride 106 mmol/L (98-107) 05/14/19 07:00 Carbon Dioxide 31 mmol/L (21-32) 05/14/19 07:00 Anion Gap 5 MMOL/L (8-16) L 05/14/19 07:00 BUN 17.5 mg/dL (7-18) 05/14/19 07:00 Creatinine 0.9 mg/dL (0.55-1.3) 05/14/19 07:00 Est GFR (CKD-EPI)AfAm 113.41 05/14/19 07:00 Est GFR (CKD-EPI)NonAf 97.85 05/14/19 07:00 Random Glucose 93 mg/dL (74-106) 05/14/19 07:00 Calcium 8.6 mg/dL (8.5-10.1) 05/14/19 07:00 Total Bilirubin 0.3 mg/dL (0.2-1) 05/14/19 07:00 AST 31 U/L (15-37) 05/14/19 07:00 ALT 21 U/L (13-61) 05/14/19 07:00 Alkaline Phosphatase 59 U/L (45-117) 05/14/19 07:00 Total Protein 5.9 g/dl (6.4-8.2) L 05/14/19 07:00 Albumin 3.3 g/dl (3.4-5.0) L 05/14/19 07:00 Urine Color Yellow 05/14/19 12:00 Urine Appearance Clear 05/14/19 12:00 Urine pH 6.5 (5.0-8.0) 05/14/19 12:00 Ur Specific [place] 1.028 (1.010-1.035) 05/14/19 12:00 Urine Protein Negative (NEGATIVE) 05/14/19 12:00 Urine Glucose (UA) Negative (NEGATIVE) 05/14/19 12:00 Urine Ketones Negative (NEGATIVE) 05/14/19 12:00 Urine Blood Negative (NEGATIVE) 05/14/19 12:00 Urine Nitrite Negative (NEGATIVE) 05/14/19 12:00 Urine Bilirubin Negative (NEGATIVE) 05/14/19 12:00 Urine Urobilinogen 1.0 mg/dL (0.2-1.0) 05/14/19 12:00 Ur Leukocyte Esterase Negative (NEGATIVE) 05/14/19 12:00 RPR Titer Nonreactive (NONREACTIVE) 05/14/19 07:00 lab noted - Treatment Hospital Course: Detox Protocol Followed, Detoxed Safely, Responded well, Discharged Condition Good, Rehab Referral Accepted Patient has Accepted a Rehab Referral to: [facility] - Medication Discharge Medications: Ambulatory Orders NK [No Known Home Medication] 09/18/18 - Diagnosis (1) Opioid dependence with withdrawal Status: Acute (2) Nicotine dependence Status: Acute Qualifiers: Nicotine product type: cigarettes Substance use status: in withdrawal Qualified Code(s): F17.213 - Nicotine dependence, cigarettes, with withdrawal - AMA Did Patient Leave Against Medical Advice: No
[2019-05-16] MEDS ORDERED: METHADONE HCL 10 MG TABLET (FOR DETOX USE ONLY) PO ONE (10:00)
[2019-05-16] MEDS ORDERED: METHADONE (DETOX) 10 MG, METHADONE (DETOX) 5 MG PO ONE (10:00)
[2019-05-17] MEDS ORDERED: METHADONE HCL 10 MG TABLET (FOR DETOX USE ONLY) PO ONE (10:00)
[2019-05-18] MEDS ORDERED: METHADONE HCL 5 MG TABLET (FOR DETOX USE ONLY) PO ONE (06:00)
== END 2019-05-16 09:04 | disposition home or self-care (01) | DRG 773 ==
LOC: YASAS 17:36 → Y3N 22:33
PROVIDERS: ADMIT Surgery; ATTEND Surgery
PROC: HZ2ZZZZ Detoxification Services for Substance Abuse Treatment (ICD-10-PCS; principal; 2019-05-13)
DX: F11.23 Opioid dependence with withdrawal (principal); F14.20 Cocaine dependence, uncomplicated; F17.213 Nicotine dependence, cigarettes, with withdrawal
CPT/HCPCS: 36415; 80053; 81003; 85027; 86593; 93005; 93010